=== PATIENT | male | born 1990 | race African-American/Black ===

== ENCOUNTER 2017-11-29 16:33 | Emergency (ER) | payer BC ==
[~2017-11-29] VITALS: Ht 182.9 cm; Wt 119.9 kg
[2017-11-29 17:11] LABS: BASOPHIL (%) 0.9 % (0-1); EOSINOPHIL (%) 0.2 % (0-5); HEMATOCRIT 45.3 % (38.0-50.0); HEMOGLOBIN 15.5 G/DL (12.5-16.6); IMMATURE GRANULOCYTE (%) 0.4 % (0.0-0.7); LYMPHOCYTE COUNT 1.5 K/uL (1.0-2.8); MCH 31.1 PG (29.0-34.0); MCHC 34.2 G/DL (30.0-36.0); MONOCYTE (%) 8.9 % (3-12); MONOCYTE COUNT 0.4 K/uL (0-0.8); NEUTROPHIL (%) 56.6 % (45-76); NEUTROPHIL COUNT 2.6 K/uL (1.8-6.4); PLATELET COUNT 313 K/uL (156-360); RBC DIS.WIDTH-CV 12.2 % (11.8-14.6); RBC DIS.WIDTH-SD 40.7 % (39-53); RED BLOOD COUNT 4.98 M/uL (4.00-5.50); WHITE BLOOD COUNT 4.5 K/uL (4.1-10.2)
[2017-11-29 17:24] LABS: AMYLASE 88 IU/L (1-118); CHLORIDE 107 mEq/L (99-109); POTASSIUM 3.9 mEq/L (3.7-5.4); SODIUM 142 mEq/L (136-147)
[2017-11-29 17:26] LABS: GLUCOSE 98 mg/dL (70-99)
[2017-11-29 17:29] LABS: SERUM ETHYL ALCOHOL 75 mg/dL
[2017-11-29 17:30] LABS: CREATININE 0.9 mg/dL (0.6-1.3); GFR ESTIMATE (CALCULATED) > 59 mL/min/ (58.99-99999); UREA NITROGEN (BUN) 12 mg/dL (9-23)
[2017-11-29 17:33] LABS: LIPASE 18 U/L (1.0-51.0)
[2017-11-29 18:53] LABS: APPEARANCE CLEAR ((CLEAR)); BILIRUBIN NEGATIVE; BLOOD NEGATIVE; COLOR YELLOW ((YELLOW)); GLUCOSE (STRIP) NEGATIVE; KETONES NEGATIVE; LEUKOCYTES NEGATIVE; NITRITE NEGATIVE; PROTEIN (STRIP) NEGATIVE; SPECIFIC GRAVITY 1.021 (1.000-1.030); UCUL ADDED? NO; UROBILINOGEN 0.2 MG/DL (0.2-1.0)
[2017-11-29 19:30] LABS: AMPHETAMINE NEGATIVE (500 ng/mL); BARBITURATES NEGATIVE (200 ng/mL); BENZODIAZEPINES NEGATIVE (150 ng/mL); BUPRENORPHINE NEGATIVE (10 ng/mL); COCAINE NEGATIVE (150 ng/mL); METHADONE NEGATIVE (200 ng/mL); METHAMPHETAMINE NEGATIVE (500 ng/mL); OPIATES (MORPHINE) NEGATIVE (100 ng/mL); OXYCODONE NEGATIVE (100 ng/mL); PHENCYCLIDINE NEGATIVE (25 ng/mL); PROPOXYPHENE NEGATIVE (300 ng/mL); THC CANNABINOIDS NEGATIVE (50 ng/mL); TRICYCLIC ANTIDEPRESSANTS NEGATIVE (300 ng/mL)
[2017-11-29] MEDS ORDERED: MOTRIN600 MG PO (19:49)
[2017-11-29] MEDS ORDERED: KEFLEX500 MG PO (19:49)
[2017-11-29 20:50] VITALS: BP 164/96
== END 2017-11-29 20:51 | disposition home or self-care (01) ==
LOC: EME 16:33 → TRA 16:33 → EME 20:51
PROVIDERS: Emergency Medicine
DX: S31.119A Laceration without foreign body of abdominal wall, unspecified quadrant without penetration into peritoneal cavity, initial encounter (principal); S30.1XXA Contusion of abdominal wall, initial encounter; X99.1XXA Assault by knife, initial encounter; Y92.838 Other recreation area as the place of occurrence of the external cause; Z23 Encounter for immunization
CPT/HCPCS: 74177; 80048; 81003; 82150; 83690; 85025; 86850; 86900; 86901; 99281; 99284; G0480; J0690; J7030